=== PATIENT | male | born 1985 | race African-American/Black ===

== ENCOUNTER 2018-02-04 09:27 | Emergency (ER) | payer SELFPAY ==
[~2018-02-04] VITALS: Ht 165.1 cm; Wt 68.0 kg
[2018-02-04] MEDS ORDERED: ALBU18HF2 IH (09:47)
[2018-02-04 11:51] VITALS: BP 165/100
[2018-02-04] MEDS ORDERED: KETOROLAC 60MG/2ML VIAL IM ONE (12:00)
== END 2018-02-04 15:24 | disposition home or self-care (01) ==
LOC: ER 10:22
DX: M25.512 Pain in left shoulder (principal); J45.909 Unspecified asthma, uncomplicated
CPT/HCPCS: 73030; 96372; 99284; J1885